=== PATIENT | female | born 1980 | race Caucasian/White ===

== ENCOUNTER 2023-09-26 17:47 | Emergency (ER) | payer MEDICAID ==
[~2023-09-26] VITALS: Ht 172.7 cm; Wt 68.0 kg
[2023-09-26 17:49] VITALS: BP 149/86; PULSE 88; RESP 16; TEMP 98.5; O2SAT 100
== END 2023-09-26 19:30 | disposition left against medical advice (07) ==
LOC: ER 17:47
DX: R10.9 Unspecified abdominal pain (principal); Z53.21 Procedure and treatment not carried out due to patient leaving prior to being seen by health care provider